=== PATIENT | male | born 1950 | race African-American/Black ===

== ENCOUNTER 2019-04-17 11:40 | Day surgery (SDC) | payer MEDICARE ==
[~2019-04-17 11:40] MED LIST: DEXAMETHASONE SOD PHOS INJ 10 MG/1 ML VIAL ONE; FAMOTIDINE INJ/PF 20 MG/2 ML SDV IV ONE; FENTANYL CITRATE INJ/PF 100 MCG/2 ML AMPUL ONE; FENTANYL CITRATE INJ/PF 250 MCG/5 ML AMPULE ONE; GLYCOPYRROLATE INJ 0.4 MG/2 ML VIAL ONE; LIDOCAINE 2% INJ-PF (100 MG/5 ML) SYRINGE ONE; MIDAZOLAM 2 MG/2 ML INJ ONE; ONDANSETRON HCL INJ/PF 4 MG/2 ML SDV ONE; PROPOFOL INJ 200 MG/20 ML VIAL IV ONE; SUCCINYLCHOLINE CHLORIDE INJ 200 MG/10 ML VIAL ONE
[2019-04-17] MEDS: LIDOCAINE 2%/EPINEPHRINE INJ 1.7 ML CARTRIDGE ONE ×2 (13:30→13:40)
[2019-04-17] MEDS ORDERED: EPHEDRINE SULFATE INJ 50 MG/1 ML AMPULE ONE (14:16)
--- NOTE | 2019-04-17 15:19 | Operative Report ---
Operative Report-[facility] Operative Report: Date: 17 April 2019 History: Patient with history of left neck mass, presents for excision of the left neck mass. Informed consent was obtained for the patient Pre-operative diagnosis: Left neck mass Post operative diagnosis: Same as above Procedure: Excision left neck mass, 6 cm in size Surgeon: Andrey Patrick MD, FACS, [facility] Anesthesia: General via endotracheal intubation Procedure: After receiving informed consent from the patient, he was taken to the operating room placed supine on the operating table. After successful induction and intubation by anesthesia a shoulder roll was placed and the left neck was extended. The incision was marked and then infiltrated with 2% Xy locaine with 100,000 epinephrine. Patient then prepped and draped in sterile fashion 15 blade used to make an incision to the subcutaneous tissue at which time the neck mass which was consistent with a lipoma was encountered. The lipoma was then carefully dissected from surrounding tissue down to the level of the platysma muscle. The lipoma was dissected off of the platysma muscle. It measured around 6 cm in size. Hemostasis was obtained using bipolar cautery. The wound was then irrigated with copious muscle normal saline no bleeding was noted. The dermis was closed using 4-0 Monocryl. Dermabond Mastisol and Steri- Strips were then applied. A pressure dressing was then applied. Patient was given back to anesthesia who successfully extubated the patient. Patient was then transferred to the postanesthesia care unit if condition with spontaneous respirations. Estimated blood loss: Minimal Fluids: 500 mL The patient was then transported to the Post Anesthesia Care Unit in stable condition with spontaneous respiration. No complication.
== END 2019-04-17 15:31 ==
LOC: SC 11:40
PROVIDERS: ATTEND Otolaryngology
DX: D17.0 Benign lipomatous neoplasm of skin and subcutaneous tissue of head, face and neck (principal)
CPT/HCPCS: 88304 ×2; 00300; 21552; J2250; J3490 ×2; J3010; J2001; J0330; J2405; J2704; S0028; J1100; 300